=== PATIENT | female | born 1985 | race Caucasian/White ===

== ENCOUNTER 2016-06-21 19:41 | Emergency (ER) | payer MEDICAID ==
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
[2016-06-21 19:46] LABS: URINE SOURCE CLEAN CATCH
[2016-06-21 19:53] LABS: URINE APPEARANCE CLEAR; URINE BILIRUBIN NEG (NEG); URINE BLOOD 3+ (NEG); URINE COLOR YELLOW; URINE GLUCOSE NEG (NEG); URINE KETONE NEG (NEG); URINE LEUKOCYTE ESTERASE NEG (NEG); URINE NITRATE NEG (NEG); URINE PROTEIN NEG (NEG)
[2016-06-21 19:56] LABS: URBCS1 AUWI 200-300 /[HPF] (0-2); URINE BACTERIA AUWI NEG (NEGATIVE); URINE SQUAMOUS EPITHELIAL CELL NONE SEEN /[HPF]; UWBCS1 AUWI 0-2 (0-5)
[2016-06-21 19:57] LABS: CULTURE INDICATED? NO
[2016-06-21 20:48] LABS: BASOPHIL% 0.5 % (0-2.5); EOSINOPHIL# 0.2 X10e3 (0-0.7); EOSINOPHIL% 4.1 % (0.0-7.0); HEMATOCRIT 33.3 % (35.0-45.0); HEMOGLOBIN 11.2 gm/dL (12.0-16.0); LYMPHOCYTE# 2.6 X10e3 (1.0-3.5); LYMPHOCYTE% 58.7 % (17.0-45.0); MEAN CELL VOLUME 83.7 FL (83-96); MEAN CORPUSCULAR HEMOGLOBIN 28.2 PG (28-34); MEAN CORPUSCULAR HGB CONC 33.7 g/dL (30-36); MEAN PLATELET VOLUME 9.4 FL (6.5-11.5); MONOCYTE# 0.3 X10e3 (0-1.0); NEUTROPHIL# 1.4 X10e3 (1.5-7.1); NEUTROPHIL% 30.7 % (40-75); PLATELET COUNT 155 X10e3 (140-420); RED BLOOD COUNT 3.98 X10e (3.90-5.30); RED CELL DISTRIBUTION WIDTH 13.2 % (11.0-15.5); WHITE BLOOD COUNT 4.4 X10e3 (4.0-10.5)
[2016-06-21 20:50] LABS: DIFF IND YES
[2016-06-21 21:00] LABS: BLOOD UREA NITROGEN 9 mg/dL (9-23); BUN/CREATININE RATIO 12.85; CALCIUM SERUM 8.4 mg/dL (8.4-10.2); CARBON DIOXIDE 27 mmol/L (22-31); CHLORIDE 104 mmol/L (100-111); CREATININE SERUM 0.7 mg/dL (0.6-1.4); GLOM FILT RATE Estimated ABOVE60 mL/min (>60); GLUCOSE FASTING 132 mg/dL (70-110); POTASSIUM 3.2 mmol/L (3.5-5.1); SODIUM 133 mmol/L (135-145)
[2016-06-21 21:17] LABS: PLATELET ESTIMATE NORMAL (NORMAL)
[2016-06-21 21:18] LABS: SMUDGE CELLS 5 /100
[2016-06-21 21:20] LABS: ANISOCYTOSIS SL
[2016-06-21 23:34] LABS: AMPHETAMINE NEG (NEG); BARBITURATES NEG (NEG); BENZODIAZEPINES NEG (NEG); COCAINE NEG (NEG); MARIJUANA NEG (NEG); OPIATES NEG (NEG); TRICYCLIC ANTIDEPRESSANTS NEG (NEG); U METHADONE POS (NEG)
[2016-06-25 20:25] LABS: CHLAMYDIA TRACH Not Detected (Not Detected); N GONOR Not Detected (Not Detected)
== END 2016-06-22 10:16 ==
LOC: CED 19:41
PROVIDERS: Student in an Organized Health Care Education/Training Program
DX: J44.1 Chronic obstructive pulmonary disease with (acute) exacerbation (principal); R91.8 Other nonspecific abnormal finding of lung field; R09.02 Hypoxemia; I10 Essential (primary) hypertension; E11.9 Type 2 diabetes mellitus without complications; F17.210 Nicotine dependence, cigarettes, uncomplicated
CPT/HCPCS: 36415; 70450; 70480; 80048; 80307; 81003; 84703; 85025; 87491; 87591; 87808; 87905; 99285

== ENCOUNTER 2016-06-22 10:46 | Inpatient (IN) | payer MEDICAID ==
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
--- NOTE | ~2016-06-22 | PN ---
Unit #: [id number] #: [id number] Patient: MERON TOVAR [id number] [facility] [address] [place] [address] [id number] I MR#: [id number] NAME: MERON TOVAR ROOM: P257 Age: 30 Sex: F Admission Date: 06/22/2016 : 1985 Attending Physician: Sheldon Adams M.D. Admitting Physician: Sheldon Adams M.D. Primary Care Physician: Primary Care Physician Rose TRAN PROGRESS NOTES DATE 06/24/2016 DISCUSSION The patient continues active participation in the programming. She is complaining of poor sleep and requests initiation of Ambien. I have explained to the patient that given her history of substance abuse, this medication is not in the opinion of this physician an applicable one for her, and I will instead order trazodone. Dictated by... Sheldon Adams M.D. CB/jori TD: 06/24/2016 12:55 JOB #: [id number] MARC PROGRESS NOTES X Sheldon Adams MD PROGRESS NOTE
--- NOTE | ~2016-06-22 | CO ---
Unit #: [id number] #: [id number] Patient: MERON TOVAR [id number] [place] [address] [id number] I MR#: [id number] NAME: MERON TOVAR ROOM: P257 Age: 30 Sex: F Admission Date: 06/22/2016 : 1985 Attending Physician: Sheldon Adams M.D. Primary Care Physician: Primary Care Physician No Consultation Date: 06/22/2016 CONSULTATION REPORT SUBJECTIVE Meron is a 30-year-old who reported itchy rash. The patient was seen and this rash was described in her admission history and physical exam. Please see H and P dated 06/22/2016. Dictated by... Rosalee Chamberlain P.A.-C. for Lowell Villasenor/lucian TD: 06/22/2016 20:41 JOB #: [id number] CONSULTATION REPORT X Rosalee Chamberlain CONSULTATION REPORT
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
== END 2016-06-25 15:10 | disposition home or self-care (01) | DRG 885 ==
LOC: P2L 10:46
PROC: 3E0234Z Introduction of Serum, Toxoid and Vaccine into Muscle, Percutaneous Approach (ICD-10-PCS; principal; 2016-06-23)
DX: F33.1 Major depressive disorder, recurrent, moderate (principal); B19.20 Unspecified viral hepatitis C without hepatic coma; F11.90 Opioid use, unspecified, uncomplicated; F17.210 Nicotine dependence, cigarettes, uncomplicated; R21 Rash and other nonspecific skin eruption; Z23 Encounter for immunization
CPT/HCPCS: 90688